=== PATIENT | female | born 1950 | race Caucasian/White ===

== ENCOUNTER 2017-08-05 11:03 | Outpatient (CLI) | payer MEDICARE | END 2017-08-05 11:24 | LOC: LAB 11:03 | PROVIDERS: ATTEND Internal Medicine Pulmonary Disease | DX: R93.8 Abnormal findings on diagnostic imaging of other specified body structures (principal); C81.04 Nodular lymphocyte predominant Hodgkin lymphoma, lymph nodes of axilla and upper limb | CPT/HCPCS: 36415; 86612; 86635; 87305; 87385 ==